=== PATIENT | female | born 1965 | race Caucasian/White ===

== ENCOUNTER → 2021-02-14 | Outpatient (CLI) | payer BC, OTHER ==
[~2021-02-14] MED LIST: COZAAR25 M1 PO; LEADER NATURA500 MCG PO; NEXIUM20 MG PO; SOTALOL HCL120 MG PO; SOTALOL HYDROCH80 MG PO
== END ==
LOC: AMSURD 11:50
DX: Z79.899 Other long term (current) drug therapy (principal)

== ENCOUNTER → 2023-07-20 | Outpatient (CLI) | payer BC, OTHER | LOC: AMSURD 14:56 | DX: Z79.899 Other long term (current) drug therapy (principal) ==

== ENCOUNTER → 2024-09-14 | Outpatient (CLI) | payer BC, OTHER | LOC: AMSURD 15:19 | DX: I49.3 Ventricular premature depolarization (principal) ==